=== PATIENT | female | born 1965 | race Two or more races ===

== ENCOUNTER 2020-07-08 08:02 | Emergency (ER) | payer MEDICAID, OTHER ==
[~2020-07-08] VITALS: Ht 162.6 cm; Wt 77.1 kg
[2020-07-08 08:26] VITALS: BP 123/68
[2020-07-08 09:21] LABS: Basophils # (auto) 0 10 ^3/uL (0-0.2); Basophils % (auto) 0.7 % (0.0-2.0); Eosinophils # (auto) 0.1 10 ^3/uL (0-0.8); Eosinophils % (auto) 2.4 % (0.0-7.0); Hematocrit 42.3 % (36.0-46.0); Hemoglobin 14.2 g/dL (12.2-16.2); Lymphocytes # (auto) 1.1 10 ^3/uL (0.4-5.4); Lymphocytes % (auto) 43.1 % (10.0-50.0); Mean Corpuscular Hgb Conc. 33.5 g/dL (32.0-36.0); Mean Corpuscular Volume 86.7 fL (80.0-100.0); Monocytes # (auto) 0.2 10 ^3/uL (0-1.3); Monocytes % (auto) 9.5 % (0.0-12.0); Neutrophils # (auto) 1.1 10 ^3/uL (1.6-8.6); Neutrophils % (auto) 44.3 % (37.0-80.0); Nucleated Red Blood Cells % 0.1 %; Platelet Count (auto) 250 10^3/uL (140-450); Red Blood Cells 4.88 10^6/uL (4.0-5.20); Red Cell Distribution Width 13.2 % (11.8-14.3); White Blood Cell 2.5 10^3/uL (4.4-10.8)
[2020-07-08 09:27] LABS: Albumin 3.8 g/dL (3.4-5.0); BUN/Creatinine Ratio 17.7; CRP High Sensitivity 0.34 mg/dL (< 0.3); Calcium 8.6 mg/dL (8.5-10.1); Potassium 3.7 mmol/L (3.5-5.1)
[2020-07-08 09:30] LABS: Bilirubin, Total 0.4 mg/dL (0.2-1.0)
[2020-07-08] MEDS ORDERED: KETOROLAC TROMETH 60MG/2ML VIAL IM ONE (09:30)
[2020-07-08 10:38] LABS: Urine Bacteria MOD /hpf (None Seen); Urine Blood Negative /uL (Negative); Urine Mucus MODERATE (None Seen); Urine Specific Gravity 1.027 (1.001-1.035); Urine WBC 22 /hpf (0 - 5)
== END 2020-07-08 12:08 | disposition home or self-care (01) ==
LOC: ER 08:02
DX: J18.9 Pneumonia, unspecified organism (principal); N39.0 Urinary tract infection, site not specified; Z20.828 Contact with and (suspected) exposure to other viral communicable diseases
CPT/HCPCS: 36415; 74176; 80053; 81001; 82728; 83615; 85025; 85379; 86141; 87086; 87426; 96372; 99284; C9803; J1885; U0003